=== PATIENT | female | born 1975 | race American Indian/Alaskan Native ===

== ENCOUNTER 2017-12-10 10:32 | Outpatient (CLI) | payer OTHER | END 2017-12-10 16:38 | disposition home or self-care (01) | LOC: MRI 10:32 | DX: R10.2 Pelvic and perineal pain (principal) | CPT/HCPCS: 74181 ==

== ENCOUNTER 2018-03-28 10:08 | Outpatient (CLI) | payer OTHER | END 2018-03-28 10:53 | disposition home or self-care (01) | LOC: NST 10:08 | DX: Z34.83 Encounter for supervision of other normal pregnancy, third trimester (principal) ==

== ENCOUNTER 2018-04-02 09:19 | Outpatient (CLI) | payer OTHER ==
[2018-04-03] MEDS ORDERED: PRENATABS RX T1 EACH PO (06:41)
== END 2018-04-02 10:01 | disposition home or self-care (01) ==
LOC: NST 09:19
DX: Z34.83 Encounter for supervision of other normal pregnancy, third trimester (principal)

== ENCOUNTER 2018-04-03 05:22 | Inpatient (IN) | payer OTHER ==
[~2018-04-03] VITALS: Ht 165.1 cm; Wt 83.9 kg
[2018-04-03] MEDS ORDERED: PRENATABS RX T1 EACH PO (06:41)
== END 2018-04-05 11:05 | DRG 768 ==
LOC: OB/GYN → LDR 05:22 → OB/GYN 18:19
PROVIDERS: ADMIT Obstetrics & Gynecology
PROC: 10D07Z6 Extraction of Products of Conception, Vacuum, Via Natural or Artificial Opening (ICD-10-PCS; principal; 2018-04-03)
PROC: 0DQR0ZZ Repair Anal Sphincter, Open Approach (ICD-10-PCS; 2018-04-03)
PROC: 0W8NXZZ Division of Female Perineum, External Approach (ICD-10-PCS; 2018-04-03)
PROC: 3E033VJ Introduction of Other Hormone into Peripheral Vein, Percutaneous Approach (ICD-10-PCS; 2018-04-03)
PROC: 4A1HXCZ Monitoring of Products of Conception, Cardiac Rate, External Approach (ICD-10-PCS; 2018-04-03)
DX: O70.21 Third degree perineal laceration during delivery, IIIa (principal); Z37.0 Single live birth; Z3A.39 39 weeks gestation of pregnancy